=== PATIENT | female | born 1960 | race Caucasian/White ===

== ENCOUNTER 2017-05-17 06:10 | Emergency (ER) | payer OTHER ==
[~2017-05-17] VITALS: Ht 167.6 cm; Wt 90.0 kg
[~2017-05-17 06:10] MED LIST: CETI5TAB2 PO; GABA300C3 PO; HYDR-2823 PO; LORT7.5T3 PO; TRAM50TA PO; TYLE500T PO
[2017-05-17 06:16] VITALS: BP 116/70; PULSE 81; RESP 18; TEMP 97.8; O2SAT 97
[2017-05-17 06:46] LABS: AUTOMATED NEUTROPHIL # 2.9 TH/MM3 (1.8-7.7); BASOPHIL # 0.1 TH/MM3 (0-0.2); BASOPHIL % 1.2 % (0.0-2.0); EOSINOPHIL # 0.2 TH/MM3 (0-0.4); EOSINOPHIL % 4.4 % (0.0-4.0); HEMATOCRIT 35.8 % (35.0-46.0); HEMOGLOBIN 11.9 GM/DL (11.6-15.3); LYMPH % 29.3 % (9.0-44.0); LYMPHOCYTE # 1.4 TH/MM3 (1.0-4.8); MEAN CELL VOLUME 90.7 FL (80.0-100.0); MEAN CORPUSCULAR HEMOGLOBIN 30.1 PG (27.0-34.0); MEAN CORPUSCULAR HGB CONC 33.3 % (32.0-36.0); MEAN PLATELET VOLUME 7.4 FL (7.0-11.0); MONO % 4.3 % (0.0-8.0); MONOCYTE # 0.2 TH/MM3 (0-0.9); NEUT % 60.8 % (16.0-70.0); PLATELET COUNT 278 TH/MM3 (150-450); RED BLOOD COUNT 3.95 MIL/MM3 (4.00-5.30); RED CELL DISTRIBUTION WIDTH 11.8 % (11.6-17.2); WHITE BLOOD COUNT 4.8 TH/MM3 (4.0-11.0)
[2017-05-17 06:54] LABS: CHLORIDE 108 MEQ/L (98-107); SODIUM (NA) 138 MEQ/L (136-145)
[2017-05-17 06:57] LABS: CALCIUM 8.6 MG/DL (8.5-10.1)
[2017-05-17 06:58] LABS: ALBUMIN 3.7 GM/DL (3.4-5.0); BICARBONATE 22.3 MEQ/L (21.0-32.0); BLOOD UREA NITROGEN 10 MG/DL (7-18); GLUCOSE,RANDOM 91 MG/DL (74-106)
[2017-05-17 07:00] LABS: ALT (GPT) 19 U/L (10-53)
[2017-05-17 07:01] LABS: AST (GOT) 14 U/L (15-37); GLOMERULAR FILTRATION RATE 87 ML/MIN (>89)
[2017-05-17 07:02] LABS: TOTAL BILIRUBIN ADULT 0.2 MG/DL (0.2-1.0); TOTAL PROTEIN 7.5 GM/DL (6.4-8.2)
[2017-05-17 07:03] LABS: ALKALINE PHOSPHATASE 96 U/L (45-117)
--- NOTE | 2017-05-17 07:04 | PD ---
HPI Chief Complaint: GI Complaint Time Seen by Provider: 06:56 Travel History International Travel<30 days: No Contact w/Intl Traveler<30days: No Traveled to known affect area: No History of Present Illness HPI Patient was seen and examined in the presence of a nurse at all times This is a 56-year-old female who presents for abdominal pain. She states that she woke up this morning, had a somewhat soft bowel movement and then developed crampy upper abdominal pain. No fever, chills, nausea, vomiting. No diarrhea. No melena or hematochezia. No urinary urgency, frequency, dysuria, hematuria. No chest pain, shortness of breath, palpitations. She has been otherwise well recently. She denies recent cough, congestion. Symptoms are mild in severity. Prior treatment includes Pepto-Bismol without relief. No alleviating or aggravating factors. PFSH Past Medical History Blood Disorders: No Anxiety: Yes Cancer: Yes (left breast) Cardiovascular Problems: No Diabetes: No Endocrine: No Gastrointestinal Disorders: No Genitourinary: No Hepatitis: No Hiatal Hernia: No Hypertension: No Immune Disorder: No Medical other: Yes (anemia at times) Musculoskeletal: Yes (CHRONIC BACK PAIN, left shoulder rc tear) Neurologic: No Reproductive: No Thyroid Disease: No ?: Not Ectopic : Yes Past Surgical History Abdominal Surgery: Yes (appy) Gynecologic Surgery: Yes (left breast lumpectomy hysterectomy repair adhesions) Hysterectomy: Yes (ADHESIONS POST) Joint Replacement: Yes (left knee hardware) Oral Surgery: Yes (teeth oral surgeries x3) Other Surgery: Yes (LEFT LUMPECTOMY) Social History Alcohol Use: No Tobacco Use: No Substance Use: No Allergies-Medications (Allergen,Severity, Reaction): Coded Allergies: penicillin G (Unverified Allergy, Mild, THROAT CLOSES, 11/01/16) Reported Meds & Prescriptions Reported Meds & Active Scripts Active Reported Lortab 7.5/500 (Acetaminophen/Hydrocodone Bitart) Tab 1 Tab PO Q4-6HPRN FOR PAIN Tylenol (Acetaminophen) 500 Mg Tab 1,000 Mg PO DAILYPRN Hydrocodone/Acetaminophen (Hydrocodone-Acetaminophen) 5 - Tab 5-10 - PO Q6HPRN Zyrtec (Cetirizine HCl) 5 Mg Tab 0 PO DAILY UNKNOWN DOSE Tramadol Hcl (Tramadol HCl) 50 Mg Tab 50-100 Mg PO Q6HPRN Gabapentin 300 Mg Cap 300 Mg PO TID Review of Systems Except as stated in HPI: all other systems reviewed are Neg Physical Exam Narrative GENERAL: Alert, well-nourished, well-appearing female resting on the bed in no acute distress. Vital signs reviewed SKIN: Focused skin assessment warm/dry. HEAD: Atraumatic. Normocephalic. EYES: Pupils equal and round. No scleral icterus. No injection or drainage. ENT: No nasal bleeding or discharge. Mucous membranes pink and moist. NECK: Trachea midline. No JVD. Supple neck was spontaneous, painless full range of motion. No meningismus CARDIOVASCULAR: Regular rate and rhythm. No murmur appreciated. RESPIRATORY: No accessory muscle use. Clear to auscultation. Breath sounds equal bilaterally. GASTROINTESTINAL: Abdomen soft, tender in epigastrium and right upper quadrant, nondistended. Hepatic and splenic margins not palpable. No rigidity, rebound. No CVA tenderness MUSCULOSKELETAL: No obvious deformities. No clubbing. No cyanosis. No edema. NEUROLOGICAL: Awake and alert. No obvious cranial nerve deficits. Motor grossly within normal limits. Normal speech. PSYCHIATRIC: Appropriate mood and affect; insight and judgment normal. Data Data Last Documented VS Vital Signs Date Time Temp Pulse Resp B/P (MAP) Pulse Ox O2 Delivery O2 Flow Rate FiO2 05/17/17 07:55 69 16 114/60 (78) 98 Room Air 05/17/17 06:16 97.8 Orders Orders Complete Blood Count With Diff (05/17/17 06:25) Comprehensive Metabolic Panel (05/17/17 06:25) Urinalysis - C+S If Indicated (05/17/17 06:25) Iv Access Insert/Monitor (05/17/17 06:25) Oximetry (05/17/17 06:25) Lipase (05/17/17 06:25) Electrocardiogram (05/17/17 07:10) Ckmb (Isoenzyme) Profile (05/17/17 07:10) Prothrombin Time / Inr (Pt) (05/17/17 07:10) Act Partial Throm Time (Ptt) (05/17/17 07:10) Troponin I (05/17/17 07:10) Chest, Pa & Lat (05/17/17 07:10) Ct Abd/Pel W Iv Contrast(Rout) (05/17/17 07:10) Pantoprazole Inj (Protonix Inj) (05/17/17 07:30) Sodium Chlor 0.9% 1000 Ml Inj (Ns 1000 M (05/17/17 07:26) Ketorolac Inj (Toradol Inj) (05/17/17 07:45) Iohexol 350 Inj (Omnipaque 350 Inj) (05/17/17 08:14) Labs Laboratory Tests Test 05/17/17 06:39 05/17/17 07:48 05/17/17 08:27 White Blood Count 4.8 TH/MM3 Red Blood Count 3.95 MIL/MM3 Hemoglobin 11.9 GM/DL Hematocrit 35.8 % Mean Corpuscular Volume 90.7 FL Mean Corpuscular Hemoglobin 30.1 PG Mean Corpuscular Hemoglobin Concent 33.3 % Red Cell Distribution Width 11.8 % Platelet Count 278 TH/MM3 Mean Platelet Volume 7.4 FL Neutrophils (%) (Auto) 60.8 % Lymphocytes (%) (Auto) 29.3 % Monocytes (%) (Auto) 4.3 % Eosinophils (%) (Auto) 4.4 % Basophils (%) (Auto) 1.2 % Neutrophils # (Auto) 2.9 TH/MM3 Lymphocytes # (Auto) 1.4 TH/MM3 Monocytes # (Auto) 0.2 TH/MM3 Eosinophils # (Auto) 0.2 TH/MM3 Basophils # (Auto) 0.1 TH/MM3 CBC Comment DIFF FINAL Differential Comment Blood Urea Nitrogen 10 MG/DL Creatinine 0.70 MG/DL Random Glucose 91 MG/DL Total Protein 7.5 GM/DL Albumin 3.7 GM/DL Calcium Level 8.6 MG/DL Alkaline Phosphatase 96 U/L Aspartate Amino Transf (AST/SGOT) 14 U/L Alanine Aminotransferase (ALT/SGPT) 19 U/L Total Bilirubin 0.2 MG/DL Sodium Level 138 MEQ/L Potassium Level 4.2 MEQ/L Chloride Level 108 MEQ/L Carbon Dioxide Level 22.3 MEQ/L Anion Gap 8 MEQ/L Estimat Glomerular Filtration Rate 87 ML/MIN Total Creatine Kinase 50 U/L Troponin I LESS THAN 0.02 NG/ML Lipase 156 U/L Prothrombin Time 9.6 SEC Prothromb Time International Ratio 0.9 RATIO Activated Partial Thromboplast Time 25.5 SEC Urine Collection Type CLEAN CATCH Urine Color YELLOW Urine Turbidity CLEAR Urine pH 5.5 Urine Specific [place] 1.035 Urine Protein NEG mg/dL Urine Glucose (UA) NEG mg/dL Urine Ketones NEG mg/dL Urine Occult Blood NEG Urine Nitrite NEG Urine Bilirubin NEG Urine Leukocyte Esterase NEG Urine RBC 0-3 /hpf Urine Squamous Epithelial Cells 0-5 /hpf Microscopic Urinalysis Comment CULT NOT INDICATED Urine Collection Time 08:27 [facility] Medical Decision Making Medical Screen Exam Complete: Yes Emergency Medical Condition: Yes Medical Record Reviewed: Yes Interpretation(s) EKG shows sinus rhythm with a rate of 80. No acute ST elevation Laboratory Tests Test 05/17/17 06:39 05/17/17 07:48 05/17/17 08:27 White Blood Count 4.8 TH/MM3 Red Blood Count 3.95 MIL/MM3 Hemoglobin 11.9 GM/DL Hematocrit 35.8 % Mean Corpuscular Volume 90.7 FL Mean Corpuscular Hemoglobin 30.1 PG Mean Corpuscular Hemoglobin Concent 33.3 % Red Cell Distribution Width 11.8 % Platelet Count 278 TH/MM3 Mean Platelet Volume 7.4 FL Neutrophils (%) (Auto) 60.8 % Lymphocytes (%) (Auto) 29.3 % Monocytes (%) (Auto) 4.3 % Eosinophils (%) (Auto) 4.4 % Basophils (%) (Auto) 1.2 % Neutrophils # (Auto) 2.9 TH/MM3 Lymphocytes # (Auto) 1.4 TH/MM3 Monocytes # (Auto) 0.2 TH/MM3 Eosinophils # (Auto) 0.2 TH/MM3 Basophils # (Auto) 0.1 TH/MM3 CBC Comment DIFF FINAL Differential Comment Blood Urea Nitrogen 10 MG/DL Creatinine 0.70 MG/DL Random Glucose 91 MG/DL Total Protein 7.5 GM/DL Albumin 3.7 GM/DL Calcium Level 8.6 MG/DL Alkaline Phosphatase 96 U/L Aspartate Amino Transf (AST/SGOT) 14 U/L Alanine Aminotransferase (ALT/SGPT) 19 U/L Total Bilirubin 0.2 MG/DL Sodium Level 138 MEQ/L Potassium Level 4.2 MEQ/L Chloride Level 108 MEQ/L Carbon Dioxide Level 22.3 MEQ/L Anion Gap 8 MEQ/L Estimat Glomerular Filtration Rate 87 ML/MIN Total Creatine Kinase 50 U/L Troponin I LESS THAN 0.02 NG/ML Lipase 156 U/L Prothrombin Time 9.6 SEC Prothromb Time International Ratio 0.9 RATIO Activated Partial Thromboplast Time 25.5 SEC Urine Collection Type CLEAN CATCH Urine Color YELLOW Urine Turbidity CLEAR Urine pH 5.5 Urine Specific [place] 1.035 Urine Protein NEG mg/dL Urine Glucose (UA) NEG mg/dL Urine Ketones NEG mg/dL Urine Occult Blood NEG Urine Nitrite NEG Urine Bilirubin NEG Urine Leukocyte Esterase NEG Urine RBC 0-3 /hpf Urine Squamous Epithelial Cells 0-5 /hpf Microscopic Urinalysis Comment CULT NOT INDICATED Urine Collection Time 08:27 Last 24 hours Impressions Chest X-Ray 05/17/17709 Signed Impressions: Service Date/Time: Wednesday, May 17, 2017 07:20 - CONCLUSION: 1. No acute cardiac pulmonary disease. There is no evidence of pneumonia. 2. Nonspecific, nonobstructive bowel gas pattern in the abdomen. There is no free air Cliff Turner MD Abdomen/Pelvis CT 05/17/17709 Signed Impressions: Service Date/Time: Wednesday, May 17, 2017 08:05 - CONCLUSION: Minimal bowel wall thickening in the splenic flexure with nonspecific bowel gas in small bowel. Multiple small gallstones in a benign appearing gallbladder Transpedicular fixation lower lumbar spine with degenerative changes evident. Ramos Keating MD FACR Differential Diagnosis Gastroenteritis, foodborne illness, gastritis, biliary colic, pancreatitis, peptic ulcer disease, diverticulitis, atypical angina less likely Narrative Course The patient was placed on a tool chaser. IV access was established. Labs, imaging were performed. Patient was given IV fluids and a dose of Toradol. Upon reexamination at 9:10 AM: She is resting comfortably on the bed, has absolutely no abdominal pain and is drinking fluids without difficulty. I reviewed the results of the workup with her. Patient had a greasy and fatty meal last night. Given the gallstones seen on CT, she may be experiencing biliary colic. She does not have fever, elevated white blood cell count, vomiting or CT evidence of acute cholecystitis. Plan for discharge with supportive care, Bentyl for cramping, Zofran for nausea and very close outpatient follow-up with primary physician. Patient understands the importance of close outpatient follow-up. She understands she may require further testing and treatment as an outpatient. She understands strict return indications. She is comfortable with this plan and eager to go home. Diagnosis Primary Impression: Biliary colic Referrals: Primary Care Physician 2 days Patient Instructions: Biliary Colic (ED), Gallstones (DC), General Instructions Additional Instructions: Drink plenty of fluids to stay well hydrated. Avoid greasy and fatty foods. Use Bentyl as needed for abdominal cramping. Use Zofran for nausea. Follow-up with primary physician within 2 days for recheck. Return with worsening symptoms. Med/Other Pt SpecificInfo: Prescription(s) given Scripts Ondansetron Odt (Zofran Odt) 4 Mg Tab 4 MG SL Q8HR Y for Nausea/Vomiting, #12 TAB 0 Refills Prov: Janet Bee MD 05/17/17 Dicyclomine (Bentyl) 10 Mg Cap 10 MG PO TID Y for ABDOMINAL CRAMPING, #15 CAP 0 Refills Prov: Janet Bee MD 05/17/17 Disposition: 01 DISCHARGE HOME Condition: Stable Janet Bee MD May 17, 2017 07:04
[2017-05-17] MEDS ORDERED: SODIUM CHLOR 0.9% 1000 ML INJ 1,000 ML IV SCH (07:26)
[2017-05-17] MEDS ORDERED: PANTOPRAZOLE SODIUM 40 MG VIAL IVP ONE (07:30)
--- NOTE | 2017-05-17 07:38 | RADRPT ---
EXAM DATE/TIME: 05/17/2017 07:20 [facility] COMPARISON: No previous studies available for comparison. INDICATIONS : Severe left epigastric pain this morning. Patient did have some cough/congestion earlier in the week. MEDICAL HISTORY : Carcinoma, breast. Left rotator cuff tear. Chronic back pain. SURGICAL HISTORY : Total knee replacement, left. Appendectomy. Hysterectomy. Left breast lumpectomy. Back sugery. ENCOUNTER: Initial ACUITY: 1 day PAIN SCORE: 10/10 LOCATION: Left upper quadrant abdomen. FINDINGS: PA and lateral views of the chest demonstrate the lungs to be symmetrically aerated without evidence of mass, infiltrate or effusion. The cardiomediastinal contours are unremarkable. Osseous structure s are intact. There is no free air. There are several loops of nondilated air-containing small bowel in the upper abdomen with gas and stool noted segmentally in the colon. CONCLUSION: 1. No acute cardiac pulmonary disease. There is no evidence of pneumonia. 2. Nonspecific, nonobstructive bowel gas pattern in the abdomen. There is no free air Cliff Turner MD on May 17, 2017 at 7:36 Board Certified Radiologist. This report was verified electronically.
[2017-05-17] MEDS ORDERED: KETOROLAC TROMETHAMINE 30 MG/ML (IVP) VIAL IV PUSH ONE (07:45)
[2017-05-17 07:55] VITALS: BP 114/60; PULSE 69; RESP 16; O2SAT 98
[2017-05-17 08:10] LABS: TROPONIN I LESS THAN 0.02 NG/ML (0.02-0.05)
[2017-05-17 08:10] LABS: INTERNATIONAL NORMALIZED RATIO 0.9 RATIO; PROTHROMBIN TIME - PATIENT 9.6 SEC (9.8-11.6)
[2017-05-17] MEDS ORDERED: IOHEXOL 350 MG/ML 10 ML VIAL (for RAD DIAG) IVCONTRAST ONE (08:14)
--- NOTE | 2017-05-17 08:33 | RADRPT ---
EXAM DATE/TIME: 05/17/2017 08:05 [facility] COMPARISON: No previous studies available for comparison. INDICATIONS : Upper abdominal pain. IV CONTRAST: 85 cc Omnipaque 350 (iohexol) IV ORAL CONTRAST: No oral contrast ingested. RADIATION DOSE: 19.92 CTDIvol (mGy) MEDICAL HISTORY : Carcinoma, breast. SURGICAL HISTORY : Appendectomy. Hysterectomy.Fusion, lumbar. ENCOUNTER: Initial ACUITY: 1 day PAIN SCALE: 10/10 LOCATION: Bilateral upper quadrant TECHNIQUE: Volumetric scanning of the abdomen and pelvis was performed. Using automated exposure control and ad justment of the mA and/or kV according to patient size, radiation dose was kept as low as reasonably achievable to obtain optimal diagnostic quality images. DICOM format image data is available electro nically for review and comparison. FINDINGS: Minimal parenchymal changes are seen in the right lung base nonspecific. There is no pericardial eff usion. The liver is free of focal defects. Multiple gallstones are present in the benign appearing gallblad raya without inflammatory changes Pancreas and adrenal glands are unremarkable Spleen appears normal Right kidney is unremarkable Large parapelvic cyst is seen in the left kidney extending to the cortical surface measuring 3.7 cm x 1.7 cm. Region of the cecum and terminal ileum unremarkable. There is no ascites or adenopathy. There is very minimal bowel wall thickening in the region of the splenic flexure, nonspecific without inflammatory changes evident. In the pelvis has fixation is noted. Bladder and adnexa regions are unremarkable. There is no free fluid. There is no ankle adenopathy. Number lackey intact. CONCLUSION: Minimal bowel wall thickening in the splenic flexure with nonspecific bowel gas in small bowel. Multiple small gallstones in a benign appearing gallbladder Transpedicular fixation lower lumbar spine with degenerative changes evident. Ramos Keating MD FACR on May 17, 2017 at 8:29 Board Certified Radiologist. This report was verified electronically.
[2017-05-17 08:48] LABS: BILIRUBIN, URINE NEG (NEG); BLOOD, URINE NEG (NEG); GLUCOSE,URINE NEG (NEG); KETONE, URINE NEG (NEG); NITRITE,URINE NEG (NEG); PH, URINE 5.5 (5.0-8.5); URINE LEUKOCYTE ESTERASE NEG (NEG)
[2017-05-17 08:55] LABS: RBC, URINE 0-3 /hpf (0-3); SQUAMOUS EPITHELIAL CELL URINE 0-5 /hpf (0-5); URINE COLOR YELLOW (YELLW/STRAW)
[2017-05-17 09:00] VITALS: BP 111/60; PULSE 62; RESP 17; O2SAT 99
[2017-05-17 09:19] VITALS: RESP 17
[2017-05-17] MEDS ORDERED: ZOFR4TAB3 SL (09:20)
[2017-05-17] MEDS ORDERED: DICY10 PO (09:20)
[2017-05-17 09:47] VITALS: BP 101/69
--- NOTE | 2017-05-18 09:41 | EKG ---
Date Performed: 05/17/2017 Time Performed: 07:18:03 PTAGE: 56 years EKG: Sinus rhythm NORMAL ECG Since the prior tracing, there has been no significant change PREVIOUS TRACING : 10/02/2010 07.53 DOCTOR: Arcadio Peters Interpretating Date/Time 05/18/2017 09:38:25
== END 2017-05-17 09:52 | disposition home or self-care (01) ==
LOC: PHED 06:10
DX: K80.50 Calculus of bile duct without cholangitis or cholecystitis without obstruction (principal); F41.9 Anxiety disorder, unspecified; Z85.3 Personal history of malignant neoplasm of breast; Z88.0 Allergy status to penicillin; Z79.899 Other long term (current) drug therapy
CPT/HCPCS: 71046; 74177; 80053; 81001; 82550; 83690; 84484; 85025; 85610; 85730; 93005; 96361; 96374; 96375; 99285; C9113; J1885; J7030; Q9967